=== PATIENT | female | born 2000 | race Hispanic/Latino ===

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

== ENCOUNTER → 2022-02-14 | Outpatient (REF) ==
[~2022-02-14] MED LIST: FIOR1CAP PO; IBUP80TA PO
== END ==
LOC: M LAB 13:37
PROVIDERS: ATTEND Nurse Practitioner Adult Health
DX: Z01.89 Encounter for other specified special examinations (principal)